=== PATIENT | female | born 1975 | race Caucasian/White ===

== ENCOUNTER → 2017-03-14 | Outpatient (CLI) | payer OTHER | LOC: BRMIMAGING 08:37 | PROVIDERS: ATTEND Family Medicine | DX: R10.32 Left lower quadrant pain (principal) | CPT/HCPCS: 76882-PO ==

== ENCOUNTER → 2017-04-10 | Outpatient (CLI) | payer OTHER | LOC: CIMAGING 17:00 | PROVIDERS: ATTEND Family Medicine | DX: N83.9 Noninflammatory disorder of ovary, fallopian tube and broad ligament, unspecified (principal); R10.2 Pelvic and perineal pain; Z30.431 Encounter for routine checking of intrauterine contraceptive device | CPT/HCPCS: 76856-PO ==

== ENCOUNTER → 2017-05-21 | Outpatient (CLI) | payer OTHER | LOC: CIMAGING 10:32 | PROVIDERS: ATTEND Obstetrics & Gynecology Gynecologic Oncology | DX: N83.202 Unspecified ovarian cyst, left side (principal) ==